=== PATIENT | male | born 1955 | race African-American/Black ===

== ENCOUNTER 2019-07-13 08:35 | Emergency (ER) | payer MEDICARE ==
[2019-07-13 08:43] VITALS: BP 162/88
[2019-07-13] MEDS ORDERED: IBUPROFEN 800 MG TABLET PO ONE (09:13)
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
--- NOTE | 2019-07-13 09:54 | RADIOLOGY REPORT (SQ) ---
EXAM DESCRIPTION: SHOULDER LEFT 2 OR MORE VIEWS COMPLETED DATE/TIME: 07/13/2019 9:36 am REASON FOR STUDY: Pain injury COMPARISON: None. NUMBER OF VIEWS: Three views. TECHNIQUE: Internal rotation, external rotation, and Y view images acquired of the left shoulder. LIMITATIONS: Limited external rotation view secondary to patient positioning . FINDINGS: MINERALIZATION: Decreased. BONES: No definite acute fracture or dislocation. There is extensive bulky glenohumeral osteophytosi s. Additional subchondral cystic change and subchondral sclerosis. Acromioclavicular osteoarthropat hy. JOINTS: No dislocation. Degenerative changes as above. VISUALIZED LUNGS AND RIBS: No pneumothorax. No rib fracture. SOFT TISSUES: No radiopaque foreign body. OTHER: No other significant finding. IMPRESSION: 1. No definite acute bony abnormality. 2. Extensive glenohumeral and acromioclavicular osteoarthropathy with bulky glenohumeral osteophytes . TECHNICAL DOCUMENTATION: JOB ID: [id number] [employer]- All Rights Reserved Reading location - IP/workstation name: [email or web address]
== END 2019-07-13 10:40 | disposition home or self-care (01) ==
LOC: ER 08:35
DX: M19.012 Primary osteoarthritis, left shoulder (principal); M25.512 Pain in left shoulder; M79.10 Myalgia, unspecified site; F17.210 Nicotine dependence, cigarettes, uncomplicated; F12.10 Cannabis abuse, uncomplicated; I10 Essential (primary) hypertension
CPT/HCPCS: 99283; 73030; A9270